=== PATIENT | male | born 1945 | race Caucasian/White ===

== ENCOUNTER 2018-09-20 19:54 | Inpatient (IN) ==
[2018-09-21] MEDS ORDERED: Acetaminophen 325 MG Tablet PO PRN (01:59)
[2018-09-21] MEDS ORDERED: Bisacodyl 10 MG Supp RECTAL PRN (01:59)
[2018-09-21] MEDS ORDERED: Dextrose 50% in Water 50 ML Vial IV.PUSH PRN (06:13)
[2018-09-21] MEDS: Insulin NovoLOG Aspart Correctional Sugar Inj SQ SCH ×4 (08:50→20:49)
--- NOTE | 2018-09-21 14:52 | P.HPIM ---
History of Present Illness Primary Care Physician: [facility] Chief Complaint: Altered mental status change History of Present Illness: 72-year-old man with multiple comorbidities and extensive past medical history including congestive heart failure, diabetes type 2, hypertension, previous history of squamous cell carcinoma, prostate cancer, CAD status post CABG was brought to the ED for evaluation of altered mental status change and a fall from the side of the bed. Patient had unremarkable head CTA and head CT in the ED however he had 8 mm nodular opacity finding in the right lower lung PMFSH Social History Social History Substance History: No History of Abuse Second Hand Smoke Exposure: No Smoking Status: Former smoker Tobacco Type: Cigarettes How Often Do You Have a Drink Containing Alcohol: Never Recent Travel in [place] within the Last 8 Weeks: No Recent Out of Country Travel within the Last 8 Weeks: No Medications and Allergies Allergies Allergy/AdvReac Type Severity Reaction Status Date / Time No Known Allergies Allergy Verified 09/20/18 20:05 Home Medications Medication Instructions Recorded Confirmed Type aspirin 81 mg PO DAILY 09/20/18 09/20/18 History atorvastatin 80 mg PO QPM 09/20/18 09/20/18 History carbidopa-levodopa 1 tab PO TID 09/20/18 09/20/18 History carvedilol 12.5 mg PO BID 09/20/18 09/20/18 History insulin aspart U-100 [Novolog 10 unit SUBCUT TID 09/20/18 09/20/18 History Flexpen U-100 Insulin] insulin glargine 50 unit SUBCUT DAILY 09/20/18 09/20/18 History lisinopril 5 mg PO DAILY 09/20/18 09/20/18 History meloxicam 7.5 mg PO DAILY 09/20/18 09/20/18 History metformin 500 mg PO BID 09/20/18 09/20/18 History omeprazole 20 mg PO DAILY 09/20/18 09/20/18 History polyvinyl alcohol 1 drp OPHTHALMIC (EYE) TID-QID PRN 09/20/18 09/20/18 History tamsulosin [Flomax] 0.4 mg PO DAILY 09/20/18 09/20/18 History venlafaxine 75 mg PO TID 09/20/18 09/20/18 History Active Medications: Active Medications Acetaminophen (Tylenol) 650 mg PO Q4H PRN PRN Reason: Temp > 100.4 Al Hydroxide/Mg Hydroxide (Milk Of Magnesia Liq) 30 ml PO Q12H PRN PRN Reason: Mild Constipation Bisacodyl (Dulcolax Supp) 10 mg RECTAL DAILY PRN PRN Reason: SEVERE CONSITIPATION Dextrose (D50w Vial) 50 ml IV.PUSH UNSCH PRN PRN Reason: PER HYPOGLYCEMIA PROTOCOL Glucagon (Glucagon Inj) 1 mg OTHER PRN PRN PRN Reason: for Hypoglycemia Protocol Ceftriaxone Sodium 1,000 mg/ (Sodium Chloride) 100 mls @ 200 mls/hr IV.SIG Q24H [facility] Last Infusion: 09/21/18 09:21 Dose: Infused Insulin Aspart (Novolog Insulin Correctional Sugar Inj) 0 unit SQ ACHS AND 3AM [facility]; Protocol Last Admin: 09/21/18 11:35 Dose: 5 unit Lactulose (Lactulose Liq) 30 ml PO DAILY PRN PRN Reason: SEVERE CONSITIPATION Ondansetron HCl (Zofran Inj) 4 mg IV.PUSH Q6H PRN PRN Reason: NAUSEA OR VOMITING Sennosides (Senokot) 17.2 mg PO Q12H PRN PRN Reason: Moderate Constipation Sodium Chloride (Ns Flush) 2 ml IV.FLUSH BID [facility] Last Admin: 09/21/18 10:00 Dose: 2 ml Sodium Chloride (Ns Flush) 2 ml IV.FLUSH PRN PRN PRN Reason: FLUSH AFTER USING IV ACCESS Physical Exam Vital signs: Vital Signs 09/21/18 06:00 09/21/18 08:00 09/21/18 08:02 Temperature 99.2 F 99.6 F Pulse Rate 60 105 H 114 H Respiratory Rate 20 20 Blood Pressure 110/56 L 111/65 Pulse Oximetry 93 L 97 09/21/18 12:00 Temperature 97.9 F Pulse Rate 107 H Respiratory Rate 20 Blood Pressure 136/64 Pulse Oximetry 93 L Intake & Output 09/20/18 09/21/18 09/21/18 18:59 06:59 18:59 Intake Total 120 / 120 100 / 100 Output Total 800 / 800 Balance -680 / -680 100 / 100 Weight 81.9 kg Intake: IV 100 / 100 Rocephin Inj 1,000 MG In NS Inj 100 / 100 100 ML @ 200 mls/hr IV.SIG Q24H [facility] Rx#:[id number] Oral 120 / 120 Output: Urine 800 / 800 Other: Date of Last Bowel Movement 09/18/18 Weight On Admission 79.199 kg Narrative: GENERAL: NAD SKIN: Warm and dry. HEAD: Atraumatic. Normocephalic. EYES: Pupils equal and round. No scleral icterus. No injection or drainage. ENT: No nasal bleeding or discharge. Mucous membranes pink and moist. NECK: Trachea midline. No JVD. CARDIOVASCULAR: Regular rate and rhythm. RESPIRATORY: No accessory muscle use. Clear to auscultation. Breath sounds equal bilaterally. GASTROINTESTINAL: Abdomen soft, non-tender, nondistended. Hepatic and splenic margins not palpable. MUSCULOSKELETAL: Extremities without clubbing, cyanosis, or edema. No obvious deformities. NEUROLOGICAL: Awake and alert. No obvious cranial nerve deficits. Motor grossly within normal limits. Five out of 5 muscle strength in the arms and legs. Normal speech. PSYCHIATRIC: Appropriate mood and affect; insight and judgment normal. Urinary Catheter Management Indwelling Urethral Catheter: Cath placed during this visit: yes Reason for continuing: Other continuation reason Insertion date: 09/20/18 Caprini VTE Risk Assessment Caprini VTE Risk Assessment: Moderate/High Risk (score >= 2) Caprini Risk Assessment Model: Point Value = 1 Point Value = 2 Point Value = 3 Point Value = 5 Age 41-60 Minor surgery BMI > 25 kg/m2 Swollen legs Varicose veins or History of unexplained or recurrent spontaneous Oral contraceptives or hormone replacement Sepsis (< 1 month) Serious lung disease, including pneumonia (< 1 month) Abnormal pulmonary function Acute myocardial infarction Congestive heart failure (< 1 month) History of inflammatory bowel disease Medical patient at bed rest Age 61-74 Arthroscopic surgery Major open surgery (> 45 min) Laparoscopic surgery (> 45 min) Malignancy Confined to bed (> 72 hours) Immobilizing plaster cast Central venous access Age >= 75 History of VTE Family history of VTE Factor V Leiden Prothrombin [id number] Lupus anticoagulant Anticardiolipin antibodies Elevated serum homocysteine Heparin-induced thrombocytopenia Other congenital or acquired thrombophilia Stroke (< 1 month) Elective arthroplasty Hip, pelvis, or leg fracture Acute spinal cord injury (< 1 month) Prophylaxis Regimen: Total Risk Factor Score Risk Level Prophylaxis Regimen 0-1 Low Early ambulation 2 Moderate Order ONE of the following: *Sequential Compression Device (SCD) *Heparin 5000 units SQ BID 3-4 Higher Order ONE of the following medications: *Heparin 5000 units SQ TID *Enoxaparin/Lovenox 40 mg SQ daily (WT < 150 kg, CrCl > 30 mL/min) *Enoxaparin/Lovenox 30 mg SQ daily (WT < 150 kg, CrCl > 10-29 mL/min) *Enoxaparin/Lovenox 30 mg SQ BID (WT < 150 kg, CrCl > 30 mL/min) AND/OR *Sequential Compression Device (SCD) 5 or more Highest Order ONE of the following medications: *Heparin 5000 units SQ TID (Preferred with Epidurals) *Enoxaparin/Lovenox 40 mg SQ daily (WT < 150 kg, CrCl > 30 mL/min) *Enoxaparin/Lovenox 30 mg SQ daily (WT < 150 kg, CrCl > 10-29 mL/min) *Enoxaparin/Lovenox 30 mg SQ BID (WT < 150 kg, CrCl > 30 mL/min) AND *Sequential Compression Device (SCD) Assessment and Plan Plan 72-year-old man with Altered mental status change Differential diagnosis includes pneumonia as patient with finding of 8 mm nodular infiltrate in the right lung He also be due to abnormal UA i.e. UTI Head CT noted and reviewed by me unremarkable Pneumonia Chest x-ray noted and reviewed by me with finding of 8 mm nodular infiltrate in the right lung Currently on Rocephin and add azithromycin Abnormal UA Currently on Rocephin pending urine culture Diabetes type 2 Start insulin sliding scale with fingerstick blood glucose monitoring Hold oral antihyperglycemic agent Parkinson's disease Resume outpatient medications Other chronic medical conditions Resume outpatient medications PT consult to treat and eval H&P: Quality VTE Deep Vein Thrombosis/Pulmonary Embolism Present on Admission: No
[2018-09-21] MEDS: Azithromycin Inj 500 MG in Sodium Chlor 0.9% Inj 250 ML IV.SIG SCH (16:36)
[2018-09-21] MEDS ORDERED: Sodium Chlor 0.9% Inj 500 ML IV.SIG SCH ×2 (19:29→23:45)
[2018-09-22] MEDS: Carvedilol 12.5 MG Tablet PO SCH ×3 (00:17→20:35)
[2018-09-22 00:45] LABS: Chloride 98 meq/L (98-107); Potassium 3.6 meq/L (3.5-5.1); Sodium 133 meq/L (136-145)
[2018-09-22 00:49] LABS: Albumin 1.9 g/dL (3.4-5.0); Anion Gap 8 meq/L (5-15); Blood Urea Nitrogen 31 mg/dL (7-18); Calcium 8.2 mg/dL (8.5-10.1); Carbon Dioxide 27.2 meq/L (21.0-32.0); Glucose,Random 153 mg/dL (74-106)
[2018-09-22 00:52] LABS: Aspartate Aminotransferase 19 U/L (15-37); Glomerular Filtration Rate 88 mL/min (>89)
[2018-09-22 00:54] LABS: Total Protein 6.5 g/dL (6.4-8.2)
[2018-09-22 00:55] LABS: Alkaline Phosphatase 126 U/L (45-117)
[2018-09-22 00:57] LABS: Troponin I 0.07 ng/mL (0.02-0.05)
[2018-09-22 01:14] LABS: Creatine Kinase 63 U/L (39-308)
[2018-09-22 01:15] LABS: Baso % (Auto) 0.2 % (0.0-2.0); Eos % (Auto) 0.1 % (0.0-4.0); Hematocrit 31.1 % (39.0-51.0); Lymph # (Auto) 0.5 th/mm3 (1.0-4.8); Lymph % (Auto) 5.8 % (9.0-44.0); Mean Corpuscular HGB Conc 32.3 % (32.0-36.0); Mean Corpuscular Hemoglobin 25.6 pg (27.0-34.0); Mean Corpuscular Volume 79.3 fL (80.0-100.0); Mono # (Auto) 0.7 th/mm3 (0.0-0.9); Neut % (Auto) 85.9 % (16.0-70.0); Platelet Count 306 th/mm3 (150-450); Red Blood Count 3.92 mil/mm3 (4.50-5.90); Red Cell Distribution Width 16.6 % (11.6-17.2); White Blood Count 8.2 th/mm3 (4.0-11.0)
[2018-09-22] MEDS: Chlorhexidine Gluconate 2% 1 Pack (2 Cloths) TOPICAL SCH (03:11)
[2018-09-22] MEDS: Insulin NovoLOG Aspart Correctional Sugar Inj SQ SCH ×5 (03:11→21:39)
[2018-09-22] MEDS ORDERED: Chlorhexidine Gluconate 2% 1 Pack (2 Cloths) TOPICAL PRN (04:00)
--- NOTE | 2018-09-22 06:48 | ECG ---
Date Performed: 09/22/2018 Time Performed: 00:10:47 PTAGE: 72 years EKG: ELECTRONIC VENTRICULAR PACEMAKER ABNORMAL RHYTHM ECG NO PREVIOUS TRACING DOCTOR: Leonard Francis Interpretating Date/Time 09/22/2018 06:48:08
[2018-09-22 07:23] LABS: Baso # (Auto) 0.1 th/mm3 (0.0-0.2); Baso % (Auto) 0.9 % (0.0-2.0); Eos % (Auto) 0.1 % (0.0-4.0); Hematocrit 31.1 % (39.0-51.0); Lymph # (Auto) 0.3 th/mm3 (1.0-4.8); Lymph % (Auto) 3.3 % (9.0-44.0); Mean Corpuscular Volume 78.2 fL (80.0-100.0); Mean Platelet Volume 7.8 fL (7.0-11.0); Mono # (Auto) 0.3 th/mm3 (0.0-0.9); Neut # (Auto) 7.6 th/mm3 (1.8-7.7); Neut % (Auto) 91.7 % (16.0-70.0); Platelet Count 299 th/mm3 (150-450); Red Blood Count 3.98 mil/mm3 (4.50-5.90); White Blood Count 8.3 th/mm3 (4.0-11.0)
[2018-09-22 07:59] LABS: Chloride 96 meq/L (98-107); Potassium 3.8 meq/L (3.5-5.1); Sodium 131 meq/L (136-145)
[2018-09-22 08:01] LABS: Anion Gap 8 meq/L (5-15); Calcium 8.4 mg/dL (8.5-10.1); Glucose,Random 172 mg/dL (74-106)
[2018-09-22 08:02] LABS: Blood Urea Nitrogen 28 mg/dL (7-18)
[2018-09-22 08:04] LABS: Troponin I 0.04 ng/mL (0.02-0.05)
[2018-09-22 08:05] LABS: Glomerular Filtration Rate Greater Than 89 mL/min (>89)
[2018-09-22] MEDS: Venlafaxine XR 75 MG Capsule PO SCH (08:12)
[2018-09-22] MEDS: Pantoprazole Sodium 20 MG DR Tablet PO SCH (08:13)
[2018-09-22] MEDS: Lisinopril 5 MG Tablet PO SCH (09:06)
--- NOTE | 2018-09-22 12:11 | P.PNIM ---
Subjective Interval history: Follow-up encephalopathy metabolic/UTI/bacteremia/pneumonia September 22, 2018patient seen and examined, patient appears more alert today and oriented to person, family member. Blood culture positive entry bilateral. Urine culture positive for Klebsiella. He was transferred last night to ICU Physical Exam Vital signs: Vital Signs 09/21/18 16:00 09/21/18 16:20 09/21/18 20:00 Temperature 98.8 F 98.7 F Pulse Rate 105 H 119 H 91 H Respiratory Rate 20 24 Blood Pressure 120/65 101/63 Pulse Oximetry 97 97 09/21/18 23:30 09/22/18 00:00 09/22/18 04:00 Temperature 97.5 F L 98.2 F Pulse Rate 88 97 H Respiratory Rate 19 21 Blood Pressure 85/47 L 127/65 Pulse Oximetry 97 97 99 09/22/18 08:00 09/22/18 08:58 09/22/18 09:58 Temperature Pulse Rate 102 H 100 H 92 H Respiratory Rate 23 21 Blood Pressure 142/69 H 127/62 Pulse Oximetry 97 98 09/22/18 10:03 09/22/18 10:58 09/22/18 11:58 Temperature Pulse Rate 82 80 Respiratory Rate 21 18 Blood Pressure 117/60 120/67 Pulse Oximetry 97 98 97 Intake & Output 09/21/18 09/22/18 09/22/18 18:59 06:59 18:59 Intake Total 1610 / 1610 1490 / 1490 500 / 500 Output Total 600 / 600 500 / 500 300 / 300 Balance 1010 / 1010 990 / 990 200 / 200 Weight 81.9 kg Intake: IV 350 / 350 1100 / 1100 Azithromycin Inj 500 MG In NS 250 / 250 Inj 250 ML @ 250 mls/hr IV.SIG Q24H [facility] Rx#:[id number] Maxipime Inj 2,000 MG In NS Inj 100 / 100 100 ML @ 200 mls/hr IV.SIG Q12H [facility] Rx#:[id number] NS Inj 500 ML @ 1000 mls/hr IV. 1000 / 1000 SIG BOLUS [facility] Rx#:[id number] Rocephin Inj 1,000 MG In NS Inj 100 / 100 100 ML @ 200 mls/hr IV.SIG Q24H [facility] Rx#:[id number] Oral 1260 / 1260 390 / 390 500 / 500 Output: Urine 600 / 600 300 / 300 Urine Amount (Catheter) 500 / 500 Indwelling Urethral Catheter 500 / 500 Other: Date of Last Bowel Movement 09/18/18 # Bowel Movements 1 Narrative: GENERAL: NAD SKIN: Warm and dry. HEAD: Atraumatic. Normocephalic. EYES: Pupils equal and round. No scleral icterus. No injection or drainage. ENT: No nasal bleeding or discharge. Mucous membranes pink and moist. NECK: Trachea midline. No JVD. CARDIOVASCULAR: Regular rate and rhythm. RESPIRATORY: No accessory muscle use. Clear to auscultation. Breath sounds equal bilaterally. GASTROINTESTINAL: Abdomen soft, non-tender, nondistended. Hepatic and splenic margins not palpable. MUSCULOSKELETAL: Extremities without clubbing, cyanosis, or edema. No obvious deformities. NEUROLOGICAL: Awake and alert. No obvious cranial nerve deficits. Motor grossly within normal limits. Five out of 5 muscle strength in the arms and legs. Normal speech. PSYCHIATRIC: Appropriate mood and affect; insight and judgment normal. Urinary Catheter Management Indwelling Urethral Catheter: Cath placed during this visit: yes Reason for continuing: Hourly intake/output Insertion date: 09/21/18 Results Labs CBC & Chem 7: 09/22/18 06:58 09/22/18 06:58 Assessment and Plan Plan 72-year-old man with Bacteremia Blood culture positive gram-negative rods Repeat blood culture Currently on IV Rocephin and azithromycin Consult ID Altered mental status change Differential diagnosis includes pneumonia as patient with finding of 8 mm nodular infiltrate in the right lung He also be due to abnormal UA i.e. UTI Head CT noted and reviewed by me unremarkable Pneumonia Chest x-ray noted and reviewed by me with finding of 8 mm nodular infiltrate in the right lung Currently on Rocephin and add azithromycin UTI Urine culture positive for Klebsiella aerogenes Currently on Rocephin Diabetes type 2 Continue insulin sliding scale with fingerstick blood glucose monitoring Hold oral antihyperglycemic agent Parkinson's disease Continue outpatient medications Other chronic medical conditions Continue outpatient medications PT to treat and eval Progress Note: Quality VTE Deep Vein Thrombosis/Pulmonary Embolism Present on Admission: No
[2018-09-22 13:23] LABS: Troponin I 0.02 ng/mL (0.02-0.05)
[2018-09-22] MEDS: Azithromycin Inj 500 MG in Sodium Chlor 0.9% Inj 250 ML IV.SIG SCH (16:14)
--- NOTE | 2018-09-22 17:19 | MB ---
cc: Camilo Costello MD DATE: 09/22/2018 REQUESTING PHYSICIAN: Silviano Richardson MD. REASON: This is a 72-year-old male admitted with metabolic encephalopathy. Treated for UTI and pneumonia, now with bacteremia. HISTORY OF PRESENT ILLNESS: This is a 72-year-old white male who was brought to the emergency department with altered mental status on 09/20/2018. The patient has multiple medical problems. His is at bedside and was able to give me information in addition to the patient. The patient was recently diagnosed with Parkinson disease. His noticed altered mental status and brought him to the emergency department for evaluation. He was initially seen on 09/20/2017 in the emergency department and he was evaluated and blood cultures were taken. Blood culture came back showing gram-negative missael in 3 of 4 bottles. Urine culture was also taken and showed Klebsiella aerogenes. The patient had elevated blood pressure while in the emergency department. This morning, his blood pressure dropped down to 85/47 and he was transported to the intensive care unit. The patient also had a chest x-ray which showed an 8 mm nodular opacity in the lateral right lower lung zone likely reflecting nipple shadow. Air space disease associated with volume loss was noted in the left lower lung zone. The patient's noted that he has a cough with slight yellow sputum production about a week ago, but that is improved. He notes that prior to him having coughed, she herself had coughing and production of yellow sputum as well. The patient feels better today. He was able to ambulate with physical therapy assistance. His noted that in the emergency department on 09/20/2018 the patient had shaking all over and they felt it was due to Parkinson disease in addition to possible infection. The white blood cell count has been normal with left shift. Temperature has been normal since admission. The patient is noted to have enlarged prostate and also has history of prostate cancer. He has been followed by the urologist and has been treated with beads implant. His PSA was noted to have decreased. Because of the enlarged prostate, he is due to go for a cystoscopy on 10/04/2018. Currently, he is awake and he is alert and communicates without difficulty, although he is somewhat slow in responses. He has a Bennett catheter in place which has clear yellow urine. The patient's noted that he gets urinary tract infection every time he has an insertion of a Bennett catheter and the last time this occurred was in July when he had a procedure on the lung and he was put under anesthesia and a Bennett catheter was placed then. Otherwise, notes that he has had weight loss, decreased appetite, constipation. He has also had urinary hesitancy and urgency, but no dysuria or back pain or flank pain. The also reports that he has very poor appetite over the past couple of weeks. The patient is also noted to have problems with his balance and he has fallen several times over the past few months. He states that he gets dizzy before he falls and he has no indication that he is going to fall when it happens. He has fallen at least on 3 occasions. He has no diarrhea or shortness of breath. PAST MEDICAL HISTORY: Diabetes mellitus, hypercholesteremia, Tellez's esophagus, esophageal cancer, pacemaker implantation 3 years ago, Parkinson disease, history of coronary artery bypass graft. PAST SURGICAL HISTORY: Lung lobectomy in 07/2018. ALLERGIES: NO KNOWN DRUG ALLERGIES. MEDICATIONS: 1. Azithromycin. 2. Cefepime. 3. Prinivil. 4. Effexor. 5. Flomax. 6. Protonix. 8. Insulin. 9. Lipitor. 10. Ecotrin. 11. Artificial Tears. SOCIAL HISTORY: The patient is . No tobacco use. He is a former smoker. No illicit drugs. No alcohol. FAMILY HISTORY: Noncontributory. REVIEW OF SYSTEMS: All systems have been reviewed and pertinents are mentioned in the history of present illness. PHYSICAL EXAMINATION: GENERAL: Well-developed male who is in no acute distress. He is awake and alert and oriented. VITAL SIGNS: Temperature 97.8, BP 108/59, respirations 20, heart rate 82. HEENT: Head atraumatic. Extraocular movements are grossly intact. Pupils reactive to light. No icterus. Oropharynx: Mucosa moist. No visible lesions. NECK: Supple without adenopathy or swelling. LUNGS: Clear breath sounds which are slightly diminished at the bases. HEART: Regular S1 and S2, without murmurs, rubs or gallops. ABDOMEN: Bowel sounds present. Soft, no tenderness appreciated. No palpable mass. RECTAL: Not performed. EXTREMITIES: No clubbing, cyanosis or edema. SKIN: No rash. NEUROLOGIC: No gross focal findings. The patient has mild weakness in the upper extremities. No visible tremor. PSYCHIATRIC: The patient is calm and cooperative. LABORATORY DATA: WBC 8.3, platelets 299,000, hemoglobin 10, 91% neutrophils. Creatinine 0.71. Estimated GFR greater than 89. Sodium 131. IMPRESSION: 1. Gram-negative sepsis from urinary tract infection source. 2. Urinary tract infection due to Klebsiella aerogenes (entero). 3. Benign prostatic hypertrophy. 4. Airspace disease along with volume loss noted in the left lower lung. The patient, however, is without clinical evidence suggesting pneumonia. He did have cough with yellow-tinged sputum, but that was not really significant and had improved before coming to the hospital. 5. The patient is noted to have Parkinson's disease and he had shaking spells in the emergency department, which very likely was due to bacteremia. His Parkinson's may have become exacerbated also by infection. RECOMMENDATIONS: 1. Continue cefepime. 2. Monitor identity and sensitivity of the gram-negative rods in the blood. 3. Monitor the repeat blood cultures. 4. Monitor clinical status and blood pressure. The patient looks fairly stable at this time and looks like he is having a very rapid response to antibiotic treatment. Thank you for this consultation. I will monitor the patient's progress along with you and make further recommendations upon followup. His enlarged prostate puts him at risk for recurrent urinary infection. He will need to be completely treated for this infection before undergoing cystoscopy, which is planned for 10/04/2018. MD DIPAK Baca/hardy , 04:36 PM , 04:55 PM
[2018-09-23] MEDS: Insulin NovoLOG Aspart Correctional Sugar Inj SQ SCH ×5 (05:19→22:14)
[2018-09-23] MEDS: Chlorhexidine Gluconate 2% 1 Pack (2 Cloths) TOPICAL SCH (05:21)
[2018-09-23 06:21] LABS: Chloride 94 meq/L (98-107); Potassium 3.9 meq/L (3.5-5.1); Sodium 130 meq/L (136-145)
[2018-09-23 06:22] LABS: Baso % (Auto) 0.2 % (0.0-2.0); Eos % (Auto) 0.2 % (0.0-4.0); Hematocrit 29.1 % (39.0-51.0); Hemoglobin 9.5 gm/dL (13.0-17.0); Lymph # (Auto) 0.4 th/mm3 (1.0-4.8); Lymph % (Auto) 5.9 % (9.0-44.0); Mean Corpuscular HGB Conc 32.6 % (32.0-36.0); Mean Corpuscular Hemoglobin 25.8 pg (27.0-34.0); Mean Corpuscular Volume 79.2 fL (80.0-100.0); Mean Platelet Volume 8.3 fL (7.0-11.0); Mono # (Auto) 0.6 th/mm3 (0.0-0.9); Mono % (Auto) 8.4 % (0.0-8.0); Neut # (Auto) 5.8 th/mm3 (1.8-7.7); Neut % (Auto) 85.3 % (16.0-70.0); Platelet Count 267 th/mm3 (150-450); Red Blood Count 3.67 mil/mm3 (4.50-5.90); Red Cell Distribution Width 16.7 % (11.6-17.2); White Blood Count 6.8 th/mm3 (4.0-11.0)
[2018-09-23 06:25] LABS: Calcium 8.2 mg/dL (8.5-10.1)
[2018-09-23 06:26] LABS: Albumin 1.9 g/dL (3.4-5.0); Anion Gap 8 meq/L (5-15); Blood Urea Nitrogen 20 mg/dL (7-18); Carbon Dioxide 27.9 meq/L (21.0-32.0); Glucose,Random 189 mg/dL (74-106)
[2018-09-23 06:29] LABS: Alanine Aminotransferase 15 U/L (12-78); Aspartate Aminotransferase 23 U/L (15-37); Glomerular Filtration Rate Greater Than 89 mL/min (>89)
[2018-09-23 06:30] LABS: Total Protein 6.7 g/dL (6.4-8.2)
[2018-09-23 06:32] LABS: Alkaline Phosphatase 128 U/L (45-117)
[2018-09-23 07:16] LABS: Ovalocytes 1+
[2018-09-23] MEDS: Carvedilol 12.5 MG Tablet PO SCH ×2 (08:31→20:04)
[2018-09-23] MEDS: Venlafaxine XR 75 MG Capsule PO SCH (08:31)
[2018-09-23] MEDS: Lisinopril 5 MG Tablet PO SCH (08:32)
[2018-09-23] MEDS: Pantoprazole Sodium 20 MG DR Tablet PO SCH (08:32)
--- NOTE | 2018-09-23 13:52 | P.PNIM ---
Subjective Interval history: Follow-up gram-negative sepsis/UTI/encephalopathy/bacteremia September 23, 2018patient seen and examined, more alert and oriented however not much of an appetite. Currently afebrile. Physical Exam Vital signs: Vital Signs 09/22/18 13:58 09/22/18 16:58 09/22/18 17:34 Temperature Pulse Rate 82 112 H Respiratory Rate 21 29 H Blood Pressure 108/59 L 126/74 131/64 Pulse Oximetry 98 09/22/18 17:58 09/22/18 19:00 09/22/18 19:42 Temperature 98 F Pulse Rate 104 H 104 H Respiratory Rate 23 23 Blood Pressure 138/68 119/58 L Pulse Oximetry 95 96 09/22/18 20:00 09/22/18 21:00 09/22/18 22:00 Temperature Pulse Rate 102 H 102 H 96 H Respiratory Rate 30 H 26 H 29 H Blood Pressure 106/55 L 124/62 123/62 Pulse Oximetry 09/22/18 23:00 09/23/18 00:00 09/23/18 01:00 Temperature 99 F Pulse Rate 98 H 111 H 94 H Respiratory Rate 28 H 27 H 27 H Blood Pressure 126/59 L 113/72 111/61 Pulse Oximetry 95 09/23/18 02:00 09/23/18 03:00 09/23/18 04:00 Temperature 98.2 F Pulse Rate 86 86 94 H Respiratory Rate 26 H 25 H 24 Blood Pressure 116/58 L 133/67 134/67 Pulse Oximetry 09/23/18 04:58 09/23/18 08:00 09/23/18 08:58 Temperature Pulse Rate 86 73 84 Respiratory Rate 25 H 22 Blood Pressure 137/73 146/68 H Pulse Oximetry 09/23/18 09:26 09/23/18 09:58 09/23/18 10:00 Temperature Pulse Rate 86 86 Respiratory Rate 22 24 Blood Pressure 107/58 L Pulse Oximetry 97 97 94 L 09/23/18 10:58 Temperature Pulse Rate 84 Respiratory Rate 23 Blood Pressure 115/57 L Pulse Oximetry Intake & Output 09/22/18 09/23/18 09/23/18 18:59 06:59 18:59 Intake Total 1570 / 1570 1190 / 1190 100 / 100 Output Total 950 / 950 450 / 450 Balance 620 / 620 740 / 740 100 / 100 Weight 82.2 kg Intake: IV 350 / 350 100 / 100 100 / 100 Azithromycin Inj 500 MG In NS 250 / 250 Inj 250 ML @ 250 mls/hr IV.SIG Q24H [facility] Rx#:[id number] Maxipime Inj 2,000 MG In NS Inj 100 / 100 100 / 100 100 / 100 100 ML @ 200 mls/hr IV.SIG Q12H [facility] Rx#:[id number] Oral 1220 / 1220 1090 / 1090 Output: Urine 300 / 300 450 / 450 Urine Amount (Catheter) 650 / 650 Indwelling Urethral Catheter 650 / 650 Other: Date of Last Bowel Movement 09/18/18 09/18/18 09/23/18 # Bowel Movements 0 Narrative: GENERAL: NAD SKIN: Warm and dry. HEAD: Atraumatic. Normocephalic. EYES: Pupils equal and round. No scleral icterus. No injection or drainage. ENT: No nasal bleeding or discharge. Mucous membranes pink and moist. NECK: Trachea midline. No JVD. CARDIOVASCULAR: Regular rate and rhythm. RESPIRATORY: No accessory muscle use. Clear to auscultation. Breath sounds equal bilaterally. GASTROINTESTINAL: Abdomen soft, non-tender, nondistended. Hepatic and splenic margins not palpable. MUSCULOSKELETAL: Extremities without clubbing, cyanosis, or edema. No obvious deformities. NEUROLOGICAL: Awake and alert. No obvious cranial nerve deficits. Motor grossly within normal limits. Five out of 5 muscle strength in the arms and legs. Normal speech. PSYCHIATRIC: Appropriate mood and affect; insight and judgment normal. Urinary Catheter Management Indwelling Urethral Catheter: Cath placed during this visit: yes Reason for continuing: Hourly intake/output Insertion date: 09/21/18 Results Labs CBC & Chem 7: 09/23/18 05:31 09/23/18 05:31 Labs: Microbiology 09/22/18 12:49 Blood - Peripheral Aerobic Blood Culture - Preliminary No growth in 1 day 09/22/18 12:49 Blood - Peripheral Anaerobic Blood Culture - Preliminary No growth in 1 day 09/22/18 12:43 Blood - Peripheral Aerobic Blood Culture - Preliminary No growth in 1 day 09/22/18 12:43 Blood - Peripheral Anaerobic Blood Culture - Preliminary No growth in 1 day Assessment and Plan Plan 72-year-old man with Gram-negative bacteremia Blood culture positive gram-negative rods Repeat blood culture Currently on IV cefepime, discontinue azithromycin Appreciate input from ID Altered mental status change-improving Differential diagnosis includes pneumonia as patient with finding of 8 mm nodular infiltrate in the right lung He also be due to abnormal UA i.e. UTI Head CT noted and reviewed by me unremarkable Pneumonia? Chest x-ray noted and reviewed by me with finding of 8 mm nodular infiltrate in the right lung Currently on cefepime and azithromycin, will discontinue azithromycin Klebsiella UTI Urine culture positive for Klebsiella aerogenes Currently on IV cefepime Diabetes type 2 Continue insulin sliding scale with fingerstick blood glucose monitoring Hold oral antihyperglycemic agent Parkinson's disease Continue outpatient medications Other chronic medical conditions Continue outpatient medications PT to treat and eval Progress Note: Quality VTE Deep Vein Thrombosis/Pulmonary Embolism Present on Admission: No
[2018-09-24] MEDS: Insulin NovoLOG Aspart Correctional Sugar Inj SQ SCH ×5 (04:39→21:49)
[2018-09-24] MEDS: Chlorhexidine Gluconate 2% 1 Pack (2 Cloths) TOPICAL SCH (06:18)
[2018-09-24] MEDS: Venlafaxine XR 75 MG Capsule PO SCH (08:28)
[2018-09-24] MEDS: Pantoprazole Sodium 20 MG DR Tablet PO SCH (08:28)
[2018-09-24] MEDS: Carvedilol 12.5 MG Tablet PO SCH ×2 (08:28→21:45)
[2018-09-24] MEDS: Lisinopril 5 MG Tablet PO SCH (08:28)
--- NOTE | 2018-09-24 10:43 | P.PNIM ---
Subjective Interval history: Follow-up gram-negative sepsis/UTI/metabolic encephalopathy/ bacteremia September 24, 2018patient seen and examined, afebrile in no acute event overnight. Alert and oriented x2. Taking p.o. well. Physical Exam Vital signs: Vital Signs 09/23/18 10:58 09/23/18 11:58 09/23/18 12:58 Temperature Pulse Rate 84 84 78 Respiratory Rate 23 23 24 Blood Pressure 115/57 L 128/54 L 115/55 L Pulse Oximetry 09/23/18 13:58 09/23/18 14:00 09/23/18 16:58 Temperature Pulse Rate 84 82 86 Respiratory Rate 24 25 H 25 H Blood Pressure 127/63 123/56 L Pulse Oximetry 09/23/18 17:58 09/23/18 19:00 09/23/18 20:00 Temperature 98.6 F Pulse Rate 94 H 94 H 94 H Respiratory Rate 27 H 28 H 27 H Blood Pressure 142/71 H 122/53 L 114/60 Pulse Oximetry 93 L 09/23/18 21:00 09/23/18 22:00 09/23/18 23:00 Temperature Pulse Rate 94 H 88 78 Respiratory Rate 27 H 27 H 26 H Blood Pressure 140/71 113/58 L 107/50 L Pulse Oximetry 93 L 95 95 09/24/18 00:14 09/24/18 01:03 09/24/18 02:00 Temperature 98.9 F Pulse Rate 76 74 66 Respiratory Rate 24 23 23 Blood Pressure 105/53 L 109/27 L 103/49 L Pulse Oximetry 94 L 97 97 09/24/18 03:00 09/24/18 04:00 09/24/18 05:00 Temperature 98.6 F Pulse Rate 76 68 66 Respiratory Rate 23 25 H 23 Blood Pressure 119/56 L 94/50 L 93/53 L Pulse Oximetry 97 95 97 09/24/18 06:00 09/24/18 08:31 Temperature Pulse Rate 70 Respiratory Rate 21 Blood Pressure 128/62 Pulse Oximetry 97 95 Intake & Output 09/23/18 09/24/18 09/24/18 18:59 06:59 18:59 Intake Total 1060 / 1060 340 / 340 Output Total 600 / 600 500 / 500 Balance 460 / 460 -160 / -160 Weight 82.3 kg Intake: IV 100 / 100 100 / 100 Maxipime Inj 2,000 MG In NS Inj 100 / 100 100 / 100 100 ML @ 200 mls/hr IV.SIG Q12H [facility] Rx#:[id number] Oral 960 / 960 240 / 240 Output: Urine Amount (Catheter) 600 / 600 500 / 500 Indwelling Urethral Catheter 600 / 600 500 / 500 Other: Date of Last Bowel Movement 09/23/18 09/23/18 09/23/18 # Bowel Movements 2 # Incontinent Bowel Movements 1 Narrative: GENERAL: NAD SKIN: Warm and dry. HEAD: Atraumatic. Normocephalic. EYES: Pupils equal and round. No scleral icterus. No injection or drainage. ENT: No nasal bleeding or discharge. Mucous membranes pink and moist. NECK: Trachea midline. No JVD. CARDIOVASCULAR: Regular rate and rhythm. RESPIRATORY: No accessory muscle use. Clear to auscultation. Breath sounds equal bilaterally. GASTROINTESTINAL: Abdomen soft, non-tender, nondistended. Hepatic and splenic margins not palpable. MUSCULOSKELETAL: Extremities without clubbing, cyanosis, or edema. No obvious deformities. NEUROLOGICAL: Awake and alert. No obvious cranial nerve deficits. Motor grossly within normal limits. Five out of 5 muscle strength in the arms and legs. Normal speech. PSYCHIATRIC: Appropriate mood and affect; insight and judgment normal. Urinary Catheter Management Indwelling Urethral Catheter: Cath placed during this visit: yes Reason for continuing: Hourly intake/output Insertion date: 09/21/18 Results Labs CBC & Chem 7: 09/23/18 05:31 09/23/18 05:31 Labs: Microbiology 09/22/18 12:49 Blood - Peripheral Aerobic Blood Culture - Preliminary No growth in 1 day 09/22/18 12:49 Blood - Peripheral Anaerobic Blood Culture - Preliminary No growth in 1 day 09/22/18 12:43 Blood - Peripheral Aerobic Blood Culture - Preliminary No growth in 1 day 09/22/18 12:43 Blood - Peripheral Anaerobic Blood Culture - Preliminary No growth in 1 day Assessment and Plan Plan 72-year-old man with Gram-negative bacteremia Blood culture positive gram-negative rods Repeat blood culture Currently on IV cefepime, s/p azithromycin Appreciate input from ID Altered mental status change-improving Differential diagnosis includes pneumonia as patient with finding of 8 mm nodular infiltrate in the right lung He also be due to abnormal UA i.e. UTI Head CT noted and reviewed by me unremarkable Pneumonia? Chest x-ray noted and reviewed by me with finding of 8 mm nodular infiltrate in the right lung Currently on cefepime Klebsiella UTI Urine culture positive for Klebsiella aerogenes Currently on IV cefepime Diabetes type 2 Continue insulin sliding scale with fingerstick blood glucose monitoring Hold oral antihyperglycemic agent Parkinson's disease Continue outpatient medications Other chronic medical conditions Continue outpatient medications PT to treat and eval Transfer to [facility] Progress Note: Quality VTE Deep Vein Thrombosis/Pulmonary Embolism Present on Admission: No
--- NOTE | 2018-09-24 17:18 | P.PNID ---
Subjective Remarks: Patient is patient is seen sitting in a chair. Awake and alert. Reports that he feels okay. Noted to have drenching sweats. He denies chills. No nausea or vomiting. reports that he started eating well today. Afebrile. WBC is normal. 72-year-old white male who was brought to the emergency department with altered mental status on 09/20/2018. The patient has multiple medical problems. Past Medical History: PAST MEDICAL HISTORY: Diabetes mellitus, hypercholesteremia, Tellez's esophagus, esophageal cancer, pacemaker implantation 3 years ago, Parkinson disease, history of coronary artery bypass graft. PAST SURGICAL HISTORY: Lung lobectomy in 07/2018. Allergies/Adverse Reactions: Allergies No Known Allergies Allergy (Verified 09/20/18 20:05) Objective Vital Signs 09/23/18 17:58 09/23/18 19:00 09/23/18 20:00 Temperature 98.6 F Pulse Rate 94 H 94 H 94 H Respiratory Rate 27 H 28 H 27 H Blood Pressure 142/71 H 122/53 L 114/60 Pulse Oximetry 93 L 09/23/18 21:00 09/23/18 22:00 09/23/18 23:00 Temperature Pulse Rate 94 H 88 78 Respiratory Rate 27 H 27 H 26 H Blood Pressure 140/71 113/58 L 107/50 L Pulse Oximetry 93 L 95 95 09/24/18 00:14 09/24/18 01:03 09/24/18 02:00 Temperature 98.9 F Pulse Rate 76 74 66 Respiratory Rate 24 23 23 Blood Pressure 105/53 L 109/27 L 103/49 L Pulse Oximetry 94 L 97 97 09/24/18 03:00 09/24/18 04:00 09/24/18 05:00 Temperature 98.6 F Pulse Rate 76 68 66 Respiratory Rate 23 25 H 23 Blood Pressure 119/56 L 94/50 L 93/53 L Pulse Oximetry 97 95 97 09/24/18 06:00 09/24/18 08:00 09/24/18 08:31 Temperature Pulse Rate 70 85 Respiratory Rate 21 21 Blood Pressure 128/62 150/63 H Pulse Oximetry 97 95 95 09/24/18 09:00 09/24/18 10:00 09/24/18 11:00 Temperature Pulse Rate 82 84 78 Respiratory Rate 20 21 21 Blood Pressure 136/64 125/64 134/60 Pulse Oximetry 93 L 91 L 88 L 09/24/18 12:00 09/24/18 13:00 09/24/18 14:00 Temperature Pulse Rate 80 76 74 Respiratory Rate 21 21 22 Blood Pressure 142/69 H 114/54 L 112/55 L Pulse Oximetry 98 97 97 09/24/18 15:18 09/24/18 16:00 Temperature Pulse Rate 78 82 Respiratory Rate 22 22 Blood Pressure 104/53 L 123/53 L Pulse Oximetry 93 L Intake & Output 09/23/18 09/24/18 09/24/18 18:59 06:59 18:59 Intake Total 1060 / 1060 340 / 340 100 / 100 Output Total 600 / 600 500 / 500 Balance 460 / 460 -160 / -160 100 / 100 Weight 82.3 kg Intake: IV 100 / 100 100 / 100 100 / 100 Maxipime Inj 2,000 MG In NS Inj 100 / 100 100 / 100 100 / 100 100 ML @ 200 mls/hr IV.SIG Q12H [facility] Rx#:[id number] Oral 960 / 960 240 / 240 Output: Urine Amount (Catheter) 600 / 600 500 / 500 Indwelling Urethral Catheter 600 / 600 500 / 500 Other: Date of Last Bowel Movement 09/23/18 09/23/18 09/23/18 # Bowel Movements 2 # Incontinent Bowel Movements 1 09/22/18 12:49 Blood - Peripheral Aerobic Blood Culture - Preliminary No growth in 2 days 09/22/18 12:49 Blood - Peripheral Anaerobic Blood Culture - Preliminary No growth in 2 days 09/22/18 12:43 Blood - Peripheral Aerobic Blood Culture - Preliminary No growth in 2 days 09/22/18 12:43 Blood - Peripheral Anaerobic Blood Culture - Preliminary No growth in 2 days Lab - Hematology Results 09/23/18 05:31 CBC w Diff Slide review pending WBC 6.8 RBC 3.67 L Hgb 9.5 L Hct 29.1 L MCV 79.2 L MCH 25.8 L MCHC 32.6 RDW 16.7 Plt Count 267 MPV 8.3 Neut % (Auto) 85.3 H Lymph % (Auto) 5.9 [place] % (Auto) 8.4 H Eos % (Auto) 0.2 Baso % (Auto) 0.2 Neut # (Auto) 5.8 Lymph # (Auto) 0.4 L [place] # (Auto) 0.6 Eos # (Auto) 0.0 Baso # (Auto) 0.0 WBC Differential . Diff Scan Auto diff confirmed Differential Comment . Ovalocytes 1+ H Lab - Chemistry Results 09/23/18 09/23/18 09/23/18 05:18 05:31 07:36 Sodium 130 L Potassium 3.9 Chloride 94 L Carbon Dioxide 27.9 Anion Gap 8 BUN 20 H Creatinine 0.63 Estimated GFR Greater than 89 POC Glucose 189 184 Random Glucose 189 H Calcium 8.2 L Total Bilirubin 0.7 AST 23 ALT 15 Alkaline Phosphatase 128 H Total Protein 6.7 Albumin 1.9 L 09/23/18 09/23/18 09/23/18 11:46 16:45 22:01 Sodium Potassium Chloride Carbon Dioxide Anion Gap BUN Creatinine Estimated GFR POC Glucose 250 227 203 Random Glucose Calcium Total Bilirubin AST ALT Alkaline Phosphatase Total Protein Albumin 09/24/18 09/24/18 09/24/18 02:54 07:55 11:34 Sodium Potassium Chloride Carbon Dioxide Anion Gap BUN Creatinine Estimated GFR POC Glucose 161 151 237 Random Glucose Calcium Total Bilirubin AST ALT Alkaline Phosphatase Total Protein Albumin Physical Exam: PHYSICAL EXAMINATION: GENERAL: No acute distress. Patient is awake and alert. HEENT: Head atraumatic. Extraocular movements are grossly intact. Pupils reactive to light. No icterus. Oropharynx: Mucosa moist. No visible lesions. NECK: Supple without adenopathy or swelling. LUNGS: Bilateral rhonchi both lower lung [place]. HEART: Regular S1 and S2, without murmurs, rubs or gallops. ABDOMEN: Bowel sounds present. Soft, no tenderness appreciated. No palpable mass. EXTREMITIES: No clubbing, cyanosis or edema. SKIN: No rash. NEUROLOGIC: No gross focal findings. The patient has mild weakness in the upper extremities. No visible tremor. PSYCHIATRIC: Calm and cooperative. Assessment and Plan - Plan IMPRESSION: 1. Gram-negative sepsis from urinary tract infection source. Klebsiella aerogenes. 2. Urinary tract infection due to Klebsiella aerogenes (entero). 3. Benign prostatic hypertrophy. 4. Airspace disease along with volume loss noted in the left lower lung. The patient, however, is without clinical evidence suggesting pneumonia. He did have cough with yellow-tinged sputum, but that was not really significant and had improved before coming to the hospital. 5. Profuse sweats. Questionable etiology. Cause is unclear to me at this time. RECOMMENDATIONS: 1. Continue cefepime. Change to ceftriaxone tomorrow morning. Order written Plan on giving ceftriaxone until October 05, 2018. He is due to have cystoscopy and possibly a procedure on the prostate gland When he sees the urologist. He has an appointment for October 04. The urologist should be notified that he is treated for this infection and may want to get a repeat urine culture before doing the procedure. 2. Monitor blood culture until final at 72 hours.
[2018-09-25] MEDS: Insulin NovoLOG Aspart Correctional Sugar Inj SQ SCH ×5 (03:10→20:50)
[2018-09-25 04:37] LABS: Baso % (Auto) 0.3 % (0.0-2.0); Eos # (Auto) 0.2 th/mm3 (0.0-0.4); Eos % (Auto) 2.6 % (0.0-4.0); Hematocrit 29.5 % (39.0-51.0); Hemoglobin 9.5 gm/dL (13.0-17.0); Lymph # (Auto) 1.1 th/mm3 (1.0-4.8); Lymph % (Auto) 14.6 % (9.0-44.0); Mean Corpuscular HGB Conc 32.2 % (32.0-36.0); Mean Corpuscular Hemoglobin 24.8 pg (27.0-34.0); Mean Corpuscular Volume 77.1 fL (80.0-100.0); Mean Platelet Volume 7.9 fL (7.0-11.0); Mono % (Auto) 13.5 % (0.0-8.0); Neut # (Auto) 5.2 th/mm3 (1.8-7.7); Platelet Count 253 th/mm3 (150-450); Red Blood Count 3.82 mil/mm3 (4.50-5.90); Red Cell Distribution Width 15.9 % (11.6-17.2); White Blood Count 7.5 th/mm3 (4.0-11.0)
[2018-09-25 04:38] LABS: Chloride 95 meq/L (98-107); Potassium 3.3 meq/L (3.5-5.1); Sodium 132 meq/L (136-145)
[2018-09-25] MEDS: Chlorhexidine Gluconate 2% 1 Pack (2 Cloths) TOPICAL SCH (04:41)
[2018-09-25 04:42] LABS: Calcium 8.3 mg/dL (8.5-10.1)
[2018-09-25 04:43] LABS: Anion Gap 8 meq/L (5-15); Blood Urea Nitrogen 13 mg/dL (7-18); Carbon Dioxide 28.9 meq/L (21.0-32.0); Glucose,Random 176 mg/dL (74-106)
[2018-09-25 04:46] LABS: Alanine Aminotransferase 17 U/L (12-78); Aspartate Aminotransferase 27 U/L (15-37); Glomerular Filtration Rate Greater Than 89 mL/min (>89)
[2018-09-25 04:49] LABS: Alkaline Phosphatase 159 U/L (45-117)
[2018-09-25 04:54] LABS: Platelet Estimate Normal (Normal); Platelet Morphology Normal (Normal)
[2018-09-25] MEDS: Pantoprazole Sodium 20 MG DR Tablet PO SCH (08:44)
[2018-09-25] MEDS: Lisinopril 5 MG Tablet PO SCH (08:44)
[2018-09-25] MEDS: Carvedilol 12.5 MG Tablet PO SCH ×2 (08:44→20:46)
[2018-09-25] MEDS: Venlafaxine XR 75 MG Capsule PO SCH (08:44)
--- NOTE | 2018-09-25 13:00 | P.PNIM ---
Subjective Interval history: Follow-up gram-negative sepsis/UTI September 25, 2018patient seen and examined, increased appetite. Sort of oxygen desaturation at night. Afebrile. by the bedside. Currently on Rocephin. Repeat culture remain negative Physical Exam Vital signs: Vital Signs 09/24/18 13:00 09/24/18 14:00 09/24/18 15:18 Temperature Pulse Rate 76 74 78 Respiratory Rate 21 22 22 Blood Pressure 114/54 L 112/55 L 104/53 L Pulse Oximetry 97 97 09/24/18 16:00 09/24/18 18:00 09/24/18 19:00 Temperature Pulse Rate 82 88 74 Respiratory Rate 22 19 Blood Pressure 123/53 L 122/56 L Pulse Oximetry 93 L 93 L 09/24/18 20:00 09/24/18 20:48 09/24/18 21:00 Temperature 98 F Pulse Rate 74 76 Respiratory Rate 22 21 Blood Pressure 123/53 L 121/52 L Pulse Oximetry 93 L 94 L 94 L 09/24/18 22:07 09/24/18 23:00 09/25/18 00:00 Temperature 98 F Pulse Rate 80 72 72 Respiratory Rate 22 22 17 Blood Pressure 137/57 L 126/58 L 134/62 Pulse Oximetry 94 L 93 L 95 09/25/18 01:00 09/25/18 02:00 09/25/18 02:02 Temperature Pulse Rate 68 72 70 Respiratory Rate 22 19 26 H Blood Pressure 120/51 L 123/59 L Pulse Oximetry 94 L 95 92 L 09/25/18 03:00 09/25/18 04:00 09/25/18 06:00 Temperature 98 F Pulse Rate 74 62 66 Respiratory Rate 20 17 Blood Pressure 128/63 97/43 L Pulse Oximetry 94 L 93 L 09/25/18 08:00 09/25/18 12:00 Temperature 97.9 F 97.5 F L Pulse Rate 74 77 Respiratory Rate 14 19 Blood Pressure 131/30 L 137/60 Pulse Oximetry 76 L 95 Intake & Output 09/24/18 09/25/18 09/25/18 18:59 06:59 18:59 Intake Total 1060 / 1060 520 / 520 100 / 100 Output Total 475 / 475 1900 / 1900 Balance 585 / 585 -1380 / -1380 100 / 100 Weight 82.9 kg Intake: IV 100 / 100 100 / 100 100 / 100 Maxipime Inj 2,000 MG In NS Inj 100 / 100 100 / 100 100 ML @ 200 mls/hr IV.SIG Q12H [facility] Rx#:[id number] Rocephin Inj 2,000 MG In NS Inj 100 / 100 100 ML @ 200 mls/hr IV.SIG Q24H [facility] Rx#:[id number] Oral 960 / 960 420 / 420 Output: Urine 475 / 475 Urine Amount (Catheter) 1899 Indwelling Urethral Catheter 1899 Other: Date of Last Bowel Movement 09/23/18 09/23/18 09/23/18 Narrative: GENERAL: NAD SKIN: Warm and dry. HEAD: Atraumatic. Normocephalic. EYES: Pupils equal and round. No scleral icterus. No injection or drainage. ENT: No nasal bleeding or discharge. Mucous membranes pink and moist. NECK: Trachea midline. No JVD. CARDIOVASCULAR: Regular rate and rhythm. RESPIRATORY: No accessory muscle use. Clear to auscultation. Breath sounds equal bilaterally. GASTROINTESTINAL: Abdomen soft, non-tender, nondistended. Hepatic and splenic margins not palpable. MUSCULOSKELETAL: Extremities without clubbing, cyanosis, or edema. No obvious deformities. NEUROLOGICAL: Awake and alert. No obvious cranial nerve deficits. Motor grossly within normal limits. Five out of 5 muscle strength in the arms and legs. Normal speech. PSYCHIATRIC: Appropriate mood and affect; insight and judgment normal. Urinary Catheter Management Indwelling Urethral Catheter: Cath placed during this visit: yes Reason for continuing: Hourly intake/output Insertion date: 09/21/18 Results Labs CBC & Chem 7: 09/25/18 04:07 09/25/18 04:07 Labs: Microbiology 09/22/18 12:49 Blood - Peripheral Aerobic Blood Culture - Preliminary No growth in 3 days 09/22/18 12:49 Blood - Peripheral Anaerobic Blood Culture - Preliminary No growth in 3 days 09/22/18 12:43 Blood - Peripheral Aerobic Blood Culture - Preliminary No growth in 3 days 09/22/18 12:43 Blood - Peripheral Anaerobic Blood Culture - Preliminary No growth in 3 days Assessment and Plan Plan 72-year-old man with Gram-negative bacteremia Blood culture positive gram-negative rods Repeat blood culture times 3 days Currently on IV Rocephin IV as of today September 25, 2018 until October 05 per ID Appreciate input from ID Altered mental status change-improved Differential diagnosis includes pneumonia as patient with finding of 8 mm nodular infiltrate in the right lung He also be due to abnormal UA i.e. UTI Head CT noted and reviewed by me unremarkable Pneumonia? Chest x-ray with finding of 8 mm nodular infiltrate in the right lung However no clinical evidence suggesting pneumonia Klebsiella UTI Urine culture positive for Klebsiella aerogenes Now on Rocephin IV as of today September 25, 2018 until October 05, 2018 per ID Diabetes type 2 Continue insulin sliding scale with fingerstick blood glucose monitoring Hold oral antihyperglycemic agent Parkinson's disease Continue outpatient medications Other chronic medical conditions Continue outpatient medications Benign prostatic hypertrophy Patient to follow outpatient with urology for planned cystoscopy October 04, 2018 May need repeat urine culture prior to procedure Keep Bennett in place Obstructive sleep apnea? Outpatient sleep study recommended PT to treat and eval Progress Note: Quality VTE Deep Vein Thrombosis/Pulmonary Embolism Present on Admission: No
[2018-09-25] MEDS ORDERED: Potassium Chloride 10 MEQ ER Capsule PO ONE (13:03)
--- NOTE | 2018-09-25 16:13 | P.PNID ---
Subjective Remarks: Patient is patient is seen sitting in a chair. Awake and alert. Reports that he feels okay. Has much less sweating episodes. He denies chills. No nausea or vomiting. reports that he started eating well. Ambulated with physical therapy assistance. Afebrile. WBC is normal. Repeat blood culture is negative. 72-year-old white male who was brought to the emergency department with altered mental status on 09/20/2018. The patient has multiple medical problems. Past Medical History: PAST MEDICAL HISTORY: Diabetes mellitus, hypercholesteremia, Tellez's esophagus, esophageal cancer, pacemaker implantation 3 years ago, Parkinson disease, history of coronary artery bypass graft. PAST SURGICAL HISTORY: Lung lobectomy in 07/2018. Allergies/Adverse Reactions: Allergies No Known Allergies Allergy (Verified 09/20/18 20:05) Objective Vital Signs 09/24/18 18:00 09/24/18 19:00 09/24/18 20:00 Temperature 98 F Pulse Rate 88 74 74 Respiratory Rate 19 22 Blood Pressure 122/56 L 123/53 L Pulse Oximetry 93 L 93 L 09/24/18 20:48 09/24/18 21:00 09/24/18 22:07 Temperature Pulse Rate 76 80 Respiratory Rate 21 22 Blood Pressure 121/52 L 137/57 L Pulse Oximetry 94 L 94 L 94 L 09/24/18 23:00 09/25/18 00:00 09/25/18 01:00 Temperature 98 F Pulse Rate 72 72 68 Respiratory Rate 22 17 22 Blood Pressure 126/58 L 134/62 120/51 L Pulse Oximetry 93 L 95 94 L 09/25/18 02:00 09/25/18 02:02 09/25/18 03:00 Temperature Pulse Rate 72 70 74 Respiratory Rate 19 26 H 20 Blood Pressure 123/59 L 128/63 Pulse Oximetry 95 92 L 94 L 09/25/18 04:00 09/25/18 06:00 09/25/18 08:00 Temperature 98 F 97.9 F Pulse Rate 62 66 74 Respiratory Rate 17 14 Blood Pressure 97/43 L 131/30 L Pulse Oximetry 93 L 76 L 09/25/18 10:00 09/25/18 12:00 Temperature 97.5 F L Pulse Rate 74 76 Respiratory Rate 19 Blood Pressure 137/60 Pulse Oximetry 95 Intake & Output 02/09/25/18 09/25/18 18:59 06:59 18:59 Intake Total 1060 / 1060 520 / 520 100 / 100 Output Total 475 / 475 1900 / 1900 Balance 585 / 585 -1380 / -1380 100 / 100 Weight 82.9 kg Intake: IV 100 / 100 100 / 100 100 / 100 Maxipime Inj 2,000 MG In NS Inj 100 / 100 100 / 100 100 ML @ 200 mls/hr IV.SIG Q12H [facility] Rx#:[id number] Rocephin Inj 2,000 MG In NS Inj 100 / 100 100 ML @ 200 mls/hr IV.SIG Q24H [facility] Rx#:[id number] Oral 960 / 960 420 / 420 Output: Urine 475 / 475 Urine Amount (Catheter) 1899 / 1900 Indwelling Urethral Catheter 1899 Other: Date of Last Bowel Movement 09/23/18 09/23/18 09/23/18 09/22/18 12:49 Blood - Peripheral Aerobic Blood Culture - Preliminary No growth in 3 days 09/22/18 12:49 Blood - Peripheral Anaerobic Blood Culture - Preliminary No growth in 3 days 09/22/18 12:43 Blood - Peripheral Aerobic Blood Culture - Preliminary No growth in 3 days 09/22/18 12:43 Blood - Peripheral Anaerobic Blood Culture - Preliminary No growth in 3 days Lab - Hematology Results 09/25/18 04:07 CBC w Diff Slide review pending WBC 7.5 RBC 3.82 L Hgb 9.5 L Hct 29.5 L MCV 77.1 L MCH 24.8 L MCHC 32.2 RDW 15.9 Plt Count 253 MPV 7.9 Neut % (Auto) 69.0 Lymph % (Auto) 14.6 [place] % (Auto) 13.5 H Eos % (Auto) 2.6 Baso % (Auto) 0.3 Neut # (Auto) 5.2 Lymph # (Auto) 1.1 [place] # (Auto) 1.0 H Eos # (Auto) 0.2 Baso # (Auto) 0.0 WBC Differential . Diff Scan Auto diff confirmed Differential Comment . Platelet Estimate Normal Platelet Morphology Normal Lab - Chemistry Results 09/23/18 09/23/18 09/24/18 16:45 22:01 02:54 Sodium Potassium Chloride Carbon Dioxide Anion Gap BUN Creatinine Estimated GFR POC Glucose 227 203 161 Random Glucose Calcium Total Bilirubin AST ALT Alkaline Phosphatase Total Protein Albumin 09/24/18 09/24/18 09/24/18 07:55 11:34 17:17 Sodium Potassium Chloride Carbon Dioxide Anion Gap BUN Creatinine Estimated GFR POC Glucose 151 237 305 Random Glucose Calcium Total Bilirubin AST ALT Alkaline Phosphatase Total Protein Albumin 09/24/18 09/25/18 09/25/18 21:40 03:05 04:07 Sodium 132 L Potassium 3.3 L Chloride 95 L Carbon Dioxide 28.9 Anion Gap 8 BUN 13 Creatinine 0.59 L Estimated GFR Greater than 89 POC Glucose 279 194 Random Glucose 176 H Calcium 8.3 L Total Bilirubin 0.7 AST 27 ALT 17 Alkaline Phosphatase 159 H Total Protein 7.0 Albumin 2.0 L 09/25/18 09/25/18 08:47 11:48 Sodium Potassium Chloride Carbon Dioxide Anion Gap BUN Creatinine Estimated GFR POC Glucose 159 309 Random Glucose Calcium Total Bilirubin AST ALT Alkaline Phosphatase Total Protein Albumin Physical Exam: PHYSICAL EXAMINATION: GENERAL: No acute distress. Patient is awake and alert. HEENT: Head atraumatic. Extraocular movements are grossly intact. Pupils reactive to light. No icterus. Oropharynx: Mucosa moist. No visible lesions. NECK: Supple without adenopathy or swelling. LUNGS: Slight basilar rhonchi. HEART: Regular S1 and S2, without murmurs, rubs or gallops. ABDOMEN: Bowel sounds present. Soft, no tenderness appreciated. No palpable mass. EXTREMITIES: No clubbing, cyanosis or edema. SKIN: No rash. NEUROLOGIC: No gross focal findings. The patient has mild weakness in the upper extremities. No visible tremor. PSYCHIATRIC: Calm and cooperative. Assessment and Plan - Plan IMPRESSION: 1. Gram-negative sepsis from urinary tract infection source. Klebsiella aerogenes. 2. Urinary tract infection due to Klebsiella aerogenes (entero). 3. Benign prostatic hypertrophy. 4. Airspace disease along with volume loss noted in the left lower lung. The patient, however, is without clinical evidence suggesting pneumonia. He did have cough with yellow-tinged sputum, but that was not really significant and had improved before coming to the hospital. 5. Profuse sweats. Questionable etiology. RECOMMENDATIONS: Continue Ceftriaxone. Plan on giving ceftriaxone until October 05, 2018. He is due to have cystoscopy and possibly a procedure on the prostate gland When he sees the urologist. The urologist should be notified that he is treated for this infection and may want to get a repeat urine culture before doing the procedure.
[2018-09-26] MEDS: Insulin NovoLOG Aspart Correctional Sugar Inj SQ SCH ×5 (04:16→21:02)
[2018-09-26] MEDS: Venlafaxine XR 75 MG Capsule PO SCH (08:35)
[2018-09-26] MEDS: Pantoprazole Sodium 20 MG DR Tablet PO SCH (08:36)
[2018-09-26] MEDS: Carvedilol 12.5 MG Tablet PO SCH ×2 (08:36→21:02)
[2018-09-26] MEDS: Lisinopril 5 MG Tablet PO SCH (08:36)
[2018-09-26] MEDS: Chlorhexidine Gluconate 2% 1 Pack (2 Cloths) TOPICAL SCH (08:37)
[2018-09-26 11:51] LABS: Bilirubin,Urine Negative (Negative); Clarity,Urine Clear (Clear); Color,Urine Yellow (Yellw/Straw); Glucose,Urine (UA) 100 mg/dL (Negative); Leukocyte Esterase,Urine Negative (Negative); Nitrite,Urine Negative (Negative); PH,Urine 7.5 (5.0-8.5); Specific Gravity,Urine 1.015 (1.002-1.035)
[2018-09-26 12:00] LABS: RBC,Urine 0-3 /hpf (0-3); WBC,Urine 0-5 /hpf (0-5)
--- NOTE | 2018-09-26 18:37 | P.PNIM ---
Subjective Interval history: 72-year-old male who is seen examined today for follow-up on sepsis with bacteremia. Patient is doing much better this time. Patient remains afebrile. Denies any new complaints. is concerned because the patient does have Parkinson's and does have recurrent falls at home. She indicates that he did the best with physical therapy that he has done in 2 years. However she is not confident that he can come home in the state that he is in because of recurrent falls and injuries to his self. Vital signs are stable. Patient remains afebrile. Physical Exam Vital signs: Vital Signs 09/25/18 19:00 09/25/18 20:00 09/25/18 20:08 Temperature Pulse Rate 86 78 74 Respiratory Rate 19 18 20 Blood Pressure 137/61 Pulse Oximetry 94 L 96 96 09/25/18 20:14 09/25/18 21:00 09/25/18 22:00 Temperature 98.8 F Pulse Rate 75 86 86 Respiratory Rate 26 H 22 22 Blood Pressure 137/61 Pulse Oximetry 95 96 09/25/18 23:00 09/25/18 23:52 09/26/18 00:00 Temperature Pulse Rate 76 76 75 Respiratory Rate 18 21 21 Blood Pressure 146/69 H 149/70 H Pulse Oximetry 95 09/26/18 00:08 09/26/18 01:00 09/26/18 02:00 Temperature 98.3 F Pulse Rate 72 74 Respiratory Rate 21 16 Blood Pressure Pulse Oximetry 09/26/18 03:00 09/26/18 03:58 09/26/18 04:00 Temperature Pulse Rate 72 70 75 Respiratory Rate 20 20 Blood Pressure 156/64 H Pulse Oximetry 09/26/18 04:34 09/26/18 08:00 09/26/18 09:00 Temperature 97.5 F L 97.9 F Pulse Rate 75 78 80 Respiratory Rate 22 18 20 Blood Pressure 156/64 H 139/78 Pulse Oximetry 99 09/26/18 10:35 09/26/18 11:00 09/26/18 12:00 Temperature 98.2 F 98.5 F Pulse Rate 88 82 80 Respiratory Rate 18 23 19 Blood Pressure 142/82 H Pulse Oximetry 09/26/18 16:00 Temperature 95.8 F L Pulse Rate 78 Respiratory Rate 20 Blood Pressure 152/76 H Pulse Oximetry 96 Intake & Output 09/25/18 09/26/18 09/26/18 18:59 06:59 18:59 Intake Total 820 / 820 100 / 100 Output Total 1100 / 1100 1000 / 1000 Balance -280 / -280 -1000 / -1000 100 / 100 Weight 83 kg Intake: IV 100 / 100 100 / 100 Rocephin Inj 2,000 MG In NS Inj 100 / 100 100 / 100 100 ML @ 200 mls/hr IV.SIG Q24H [facility] Rx#:[id number] Oral 720 / 720 Output: Urine 1100 / 1100 Urine Amount (Catheter) 1000 / 1000 Indwelling Urethral Catheter 1000 / 1000 Other: Date of Last Bowel Movement 09/25/18 09/25/18 09/25/18 # Bowel Movements 1 Narrative: GENERAL: Well-developed, well-nourished, in no acute distress. alert and orientated HEENT: Head is normocephalic without any lesions or masses noted. Facial features are symmetric. Eyes: Extraocular muscles are intact. Conjunctivae were clear. NECK: Supple without any masses. Trachea midline no deviation. No JVD, CARDIAC: Regular rhythm, regular rate. S1/S2 are heard. No murmurs gallops or rubs. LUNGS: Clear to auscultation bilaterally. No wheeze, rhonchi or rales. No use of accessory muscles on inspiration or expiration. ABDOMEN: Soft, nontender. Nondistended. Bowel sounds heard in all 4 quadrants. No organomegaly or masses. Negative rebound, negative guarding EXTREMITIES: No edema, pulses are equal bilaterally. No cyanosis or clubbing NEUROLOGY: Mood and affect appear appropriate. Cranial nerves II through XII grossly intact. Moving all extremities, speech is clear Urinary Catheter Management Indwelling Urethral Catheter: Cath placed during this visit: yes Reason for continuing: Hourly intake/output Insertion date: 09/21/18 Results Labs CBC & Chem 7: 09/27/18 05:17 09/27/18 05:17 Labs: Microbiology 09/22/18 12:49 Blood - Peripheral Aerobic Blood Culture - Preliminary No growth in 4 days 09/22/18 12:49 Blood - Peripheral Anaerobic Blood Culture - Preliminary No growth in 4 days 09/22/18 12:43 Blood - Peripheral Aerobic Blood Culture - Preliminary No growth in 4 days 09/22/18 12:43 Blood - Peripheral Anaerobic Blood Culture - Preliminary No growth in 4 days Assessment and Plan Plan Klebsiella aerogenes bacteremia Infection has been identified as urinary source Patient is on Rocephin IV Infectious disease following the patient and recommended IV antibiotics until October 05 We will need to consult for vascular access for outpatient IV antibiotics Follow-up blood cultures are negative for 4 days Klebsiella aerogenes urinary tract infection Continued on Rocephin IV Culture sensitive to Rocephin Altered mental status change, likely toxic encephalopathy Could be secondary to urinary tract infection and sepsis CT of the head was performed which was unremarkable Workup did not indicate any metabolic encephalopathy Abnormal chest x-ray 8 mm nodule opacity in the right lower lungs may reflect nipple shadow. Requesting repeat imaging with nipple markers, airspace disease with associated volume loss in the left lower lung zone presumably atelectasis Incentive spirometry Repeat chest x-ray Diabetes Accu-Cheks with sliding scale insulin Parkinson's Home medications were continued Benign prostatic hypertrophy Continue home medications Patient does have follow-up appointment with urology for cystoscopy on September Discussed with who she does not think that she is going to have the procedure done We will maintain Bennett until outpatient follow-up with urologist Physical deconditioning Possibly secondary to infection versus Parkinson Physical therapy has been following the patient and patient actually walked over 200 feet today. However family indicates that he has not done that in over 2 years. says that she cannot even help him get up out of the bed or out of the chair on her own. Occupational therapy indicating occupational therapy at rehab [facility] consulted for discharge planning DVT prevention Sequential compression devices Discussed Condition With: Discussed with patient, , nursing staff. Discharge Planning: Discharge planning: Case management was consulted. Still need to arrange PICC line, outpatient IV antibiotics, possible rehab versus home with home health care Progress Note: Quality VTE Deep Vein Thrombosis/Pulmonary Embolism Present on Admission: No
[2018-09-27] MEDS: Insulin NovoLOG Aspart Correctional Sugar Inj SQ SCH ×3 (03:36→12:02)
[2018-09-27 06:51] LABS: Baso % (Auto) 0.3 % (0.0-2.0); Eos # (Auto) 0.3 th/mm3 (0.0-0.4); Eos % (Auto) 3.1 % (0.0-4.0); Hematocrit 32.6 % (39.0-51.0); Hemoglobin 10.7 gm/dL (13.0-17.0); Lymph # (Auto) 1.5 th/mm3 (1.0-4.8); Lymph % (Auto) 16.8 % (9.0-44.0); Mean Corpuscular HGB Conc 32.7 % (32.0-36.0); Mean Corpuscular Hemoglobin 25.8 pg (27.0-34.0); Mean Corpuscular Volume 78.8 fL (80.0-100.0); Mean Platelet Volume 8.2 fL (7.0-11.0); Mono # (Auto) 0.7 th/mm3 (0.0-0.9); Mono % (Auto) 8.2 % (0.0-8.0); Neut # (Auto) 6.6 th/mm3 (1.8-7.7); Neut % (Auto) 71.6 % (16.0-70.0); Platelet Count 304 th/mm3 (150-450); Red Blood Count 4.15 mil/mm3 (4.50-5.90); Red Cell Distribution Width 15.8 % (11.6-17.2); White Blood Count 9.1 th/mm3 (4.0-11.0)
[2018-09-27 07:15] LABS: Chloride 98 meq/L (98-107); Potassium 3.8 meq/L (3.5-5.1); Sodium 135 meq/L (136-145)
[2018-09-27 07:18] LABS: Calcium 8.7 mg/dL (8.5-10.1)
[2018-09-27 07:19] LABS: Anion Gap 5 meq/L (5-15); Blood Urea Nitrogen 10 mg/dL (7-18); Carbon Dioxide 31.9 meq/L (21.0-32.0); Glucose,Random 211 mg/dL (74-106)
[2018-09-27 07:22] LABS: Glomerular Filtration Rate Greater Than 89 mL/min (>89)
[2018-09-27] MEDS: Pantoprazole Sodium 20 MG DR Tablet PO SCH (08:41)
[2018-09-27] MEDS: Venlafaxine XR 75 MG Capsule PO SCH (08:41)
[2018-09-27] MEDS: Lisinopril 5 MG Tablet PO SCH (08:41)
[2018-09-27] MEDS: Carvedilol 12.5 MG Tablet PO SCH (08:42)
--- NOTE | 2018-09-27 08:42 | P.DCO ---
Post Hospital Infusion Therapy Location of Infusion Therapy: 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 [] May leave port accessed during therapy. [] May leave peripheral site accessed for duration of therapy. [x] If patient has SOB or respiratory distress, check oxygen saturation. If less than 90% or clinical signs of respiratory distress, administer oxygen at 2 L/min. via nasal cannula and notify physician. [x] Anaphylaxis/Reaction orders: * Stop infusion. * Keep IV line open with saline flush. * Notify physician. * Monitor vital signs every 15 minutes until symptoms resolve. * Check Oxygen saturation; Oxygen at 2 L/min. via nasal cannula if less than 90% or clinical signs of respiratory distress. * Administer diphenhydramine (Benadryl) 25 mg IV STAT, (unless patient has received as pre-med). May repeat once, if necessary. * Solu-Cortef 250 mg IVP over 30-60 seconds, use 100 mg vials for each dissolution. * Epinephrine (1mg/1 ml) 0.3 mg subcutaneously or IVP now with any signs of respiratory distress. * Check with physician for new additional pre-med orders if patient is re- challenged or re-treated. [x] May remove PICC line when treatment complete, after confirming with Physician. [x] If the patient is admitted to the hospital, the ED, or transferred via [facility] , complete transfer form including medication reconciliation order sheet. Weekly Labs: BMP and CBC w/diff Case Management Consult Case Management Consult-IVF: Yes
[2018-09-27 09:32] VITALS: BP 165/67; PULSE 98; RESP 20; TEMP 98; O2SAT 90
--- NOTE | 2018-09-27 10:20 | P.DS ---
DS: Providers Date of admission: 09/22/18 07:53 Primary care physician: [facility] Consults: 09/22/18 12:17 Consult to Infectious Diseases Routine Consulting Provider: Camilo Costello Reason for Consultation: 72-year-old male admitted secondary to metabolic encephalopathy, treated for UTI and pneumonia and now with bacteremia, please evaluate and advise for therapy Notified:: Service Spoke with:: Eva Date Notified:: 09/22/18 Time Notified:: 12:23 Ordering Provider: RENEA 09/26/18 15:36 HUB Only Consult Order Routine Consulting Provider: Mamta Xie Reason for Consultation: rehab Notified:: Service Spoke with:: Brook Date Notified:: 09/26/18 Time:: 15:36 Anticipated date of discharge: 09/27/18 Brief History from admission: 72-year-old man with multiple comorbidities and extensive past medical history including congestive heart failure, diabetes type 2, hypertension, previous history of squamous cell carcinoma, prostate cancer, CAD status post CABG was brought to the ED for evaluation of altered mental status change and a fall from the side of the bed. Patient had unremarkable head CTA and head CT in the ED however he had 8 mm nodular opacity finding in the right lower lung DS: Diagnosis Discharge Diagnosis (1) Bacteremia: Status: Acute (2) Urinary tract infection: Status: Acute (3) Sepsis: Status: Acute (4) Altered mental status: Status: Acute (5) Physical deconditioning: Status: Acute DS: Summary Klebsiella aerogenes bacteremia Infection has been identified as urinary source Patient is on Rocephin IV Infectious disease following the patient and recommended IV antibiotics until October 05 We will need to consult for vascular access for outpatient IV antibiotics Follow-up blood cultures are negative for 4 days Klebsiella aerogenes urinary tract infection Continued on Rocephin IV Culture sensitive to Rocephin Altered mental status change, likely toxic encephalopathy Could be secondary to urinary tract infection and sepsis CT of the head was performed which was unremarkable Workup did not indicate any metabolic encephalopathy Abnormal chest x-ray 8 mm nodule opacity in the right lower lungs may reflect nipple shadow. Requesting repeat imaging with nipple markers, airspace disease with associated volume loss in the left lower lung zone presumably atelectasis Incentive spirometry Repeat chest x-ray Diabetes Accu-Cheks with sliding scale insulin Parkinson's Home medications were continued Benign prostatic hypertrophy Continue home medications Patient does have follow-up appointment with urology for cystoscopy on September Discussed with who she does not think that she is going to have the procedure done We will maintain Bennett until outpatient follow-up with urologist Physical deconditioning Possibly secondary to infection versus Parkinson Physical therapy has been following the patient and patient actually walked over 200 feet today. However family indicates that he has not done that in over 2 years. says that she cannot even help him get up out of the bed or out of the chair on her own. Occupational therapy indicating occupational therapy at rehab [facility] consulted for discharge planning Time Spent with Patient Total time spent providing and/or coordinating discharge services: Greater than 30 minutes Quality: VTE Deep Vein Thrombosis/Pulmonary Embolism Present on Admission: No Exam Narrative Exam Narrative: GENERAL: Well-developed, well-nourished, in no acute distress. alert and orientated HEENT: Head is normocephalic without any lesions or masses noted. Facial features are symmetric. Eyes: Extraocular muscles are intact. Conjunctivae were clear. NECK: Supple without any masses. Trachea midline no deviation. No JVD, CARDIAC: Regular rhythm, regular rate. S1/S2 are heard. No murmurs gallops or rubs. LUNGS: Clear to auscultation bilaterally. No wheeze, rhonchi or rales. No use of accessory muscles on inspiration or expiration. ABDOMEN: Soft, nontender. Nondistended. Bowel sounds heard in all 4 quadrants. No organomegaly or masses. Negative rebound, negative guarding EXTREMITIES: No edema, pulses are equal bilaterally. No cyanosis or clubbing NEUROLOGY: Mood and affect appear appropriate. Cranial nerves II through XII grossly intact. Moving all extremities, speech is clear Results Labs on day of discharge: Labs from last 24 hours 09/27/18 09/27/18 09/27/18 07:17 05:17 05:17 CBC w Diff Auto diff final WBC 9.1 RBC 4.15 L Hgb 10.7 L Hct 32.6 L MCV 78.8 L MCH 25.8 L MCHC 32.7 RDW 15.8 Plt Count 304 MPV 8.2 Neut % (Auto) 71.6 H Lymph % (Auto) 16.8 [place] % (Auto) 8.2 H Eos % (Auto) 3.1 Baso % (Auto) 0.3 Neut # (Auto) 6.6 Lymph # (Auto) 1.5 [place] # (Auto) 0.7 Eos # (Auto) 0.3 Baso # (Auto) 0.0 WBC Differential . Differential Comment . Sodium 135 L Potassium 3.8 Chloride 98 Carbon Dioxide 31.9 Anion Gap 5 BUN 10 Creatinine 0.59 L Estimated GFR Greater than 89 POC Glucose 199 Random Glucose 211 H Calcium 8.7 Urine Color Urine Clarity Urine pH Ur Specific [place] Urine Protein Urine Glucose (UA) Urine Ketones Urine Occult Blood Urine Nitrate Urine Bilirubin Urine Urobilinogen Ur Leukocyte Esterase Urine RBC Urine WBC Urine Yeast Micro UA Comment Ur Microscopic Review Urine Culture Comments 09/27/18 09/26/18 09/26/18 03:31 20:17 16:17 CBC w Diff WBC RBC Hgb Hct MCV MCH MCHC RDW Plt Count MPV Neut % (Auto) Lymph % (Auto) [place] % (Auto) Eos % (Auto) Baso % (Auto) Neut # (Auto) Lymph # (Auto) [place] # (Auto) Eos # (Auto) Baso # (Auto) WBC Differential Differential Comment Sodium Potassium Chloride Carbon Dioxide Anion Gap BUN Creatinine Estimated GFR POC Glucose 232 303 237 Random Glucose Calcium Urine Color Urine Clarity Urine pH Ur Specific [place] Urine Protein Urine Glucose (UA) Urine Ketones Urine Occult Blood Urine Nitrate Urine Bilirubin Urine Urobilinogen Ur Leukocyte Esterase Urine RBC Urine WBC Urine Yeast Micro UA Comment Ur Microscopic Review Urine Culture Comments 09/26/18 09/26/18 11:26 11:22 CBC w Diff WBC RBC Hgb Hct MCV MCH MCHC RDW Plt Count MPV Neut % (Auto) Lymph % (Auto) [place] % (Auto) Eos % (Auto) Baso % (Auto) Neut # (Auto) Lymph # (Auto) [place] # (Auto) Eos # (Auto) Baso # (Auto) WBC Differential Differential Comment Sodium Potassium Chloride Carbon Dioxide Anion Gap BUN Creatinine Estimated GFR POC Glucose 330 Random Glucose Calcium Urine Color Yellow Urine Clarity Clear Urine pH 7.5 Ur Specific [place] 1.015 Urine Protein Negative Urine Glucose (UA) 100 H Urine Ketones Negative Urine Occult Blood Trace Urine Nitrate Negative Urine Bilirubin Negative Urine Urobilinogen 2.0 H Ur Leukocyte Esterase Negative Urine RBC 0-3 Urine WBC 0-5 Urine Yeast Many H Micro UA Comment Culture not ind Ur Microscopic Review Microscopic reviewed Urine Culture Comments Culture not ind Preliminary micro results at discharge 09/22/18 12:49 Aerobic Blood Culture - Preliminary Blood - Peripheral No growth in 4 days Anaerobic Blood Culture - Preliminary No growth in 4 days 09/22/18 12:43 Aerobic Blood Culture - Preliminary Blood - Peripheral No growth in 4 days Anaerobic Blood Culture - Preliminary No growth in 4 days Discharge Plan Discharge Disposition Patient Disposition: 62 Rehab Inpatient Discharge Condition Condition: Stable Discharge Order Discharge Orders: Discharge Order (Routine); Ordered 09/27/18 Ordered By: Dhruv Gomes Discharge Details Anticipated Discharge Date: 09/27/18 Discharge Comment: Okay to discharge to rehab once arrangements made by case management Physicians Team Primary Care Provider: [facility] Attending Provider: Kristian Moraes Other Providers: Camilo Costello ; Elsi Kruger,Mamta Rxs /Orders / Referrals /Forms Prescriptions: New atorvastatin 40 mg Tablet 40 mg PO DAILY@1800 Qty: 30 RF: 0 carvedilol [Coreg] 12.5 mg Tablet 12.5 mg PO BID Qty: 30 RF: 0 tamsulosin 0.4 mg Capsule 0.4 mg PO DAILY Qty: 30 RF: 0 venlafaxine [Effexor XR] 75 mg Capsule,Extended Release 24hr 150 mg PO DAILY Qty: 30 RF: 0 aspirin 81 mg Tablet,Delayed Release (Dr/Ec) 81 mg PO DAILY Qty: 30 RF: 0 pantoprazole [Protonix] 20 mg Tablet,Delayed Release (Dr/Ec) 20 mg PO DAILY Qty: 30 RF: 0 insulin aspart U-100 [Novolog U-100 Insulin aspart] 100 unit/mL Solution subcut ACHS AND 3AM Qty: 1 RF: 0 carbidopa-levodopa 25-100 mg Tablet 0.5 tab PO BID Qty: 30 RF: 0 ceftriaxone 2 gram recon soln 2 g IV.SIG Q24H Qty: 8 RF: 0 lisinopril 10 mg tablet 10 mg PO DAILY Qty: 30 RF: 0 Continue atorvastatin 80 mg Tablet 0.5 tab PO QPM RF: 0 carvedilol 12.5 mg Tablet 12.5 mg PO BID RF: 0 polyvinyl alcohol 1.4 % Drops 1 drp EACH EYE DAILY PRN (Reason: DRY EYE) RF: 0 aspirin 81 mg Tablet,Delayed Release (Dr/Ec) 81 mg PO DAILY RF: 0 lisinopril 5 mg Tablet 5 mg PO DAILY RF: 0 insulin aspart U-100 [Novolog Flexpen U-100 Insulin] 100 unit/mL Insulin Pen 10 unit SUBCUT TID RF: 0 insulin glargine 100 unit/mL Solution 48 unit SUBCUT HS RF: 0 meloxicam 7.5 mg Tablet 7.5 mg PO DAILY RF: 0 metformin 500 mg Tablet 500 mg PO AC BREAKFAST RF: 0 venlafaxine 75 mg Tablet 150 mg PO DAILY RF: 0 tamsulosin [Flomax] 0.4 mg Capsule 0.4 mg PO DAILY RF: 0 omeprazole 20 mg Tablet,Delayed Release (Dr/Ec) 20 mg PO DAILY RF: 0 carbidopa-levodopa 25-100 mg Tablet 0.5 tab PO BID RF: 0 Referrals: [facility] [Primary Care Provider] - See Instructions ( REHAB INPAT, AT PATIENTS CONVENIENCE AFTER REHAB INSTRUCT PT TO CALL THEIR PCP FOR A F/U APT IF NEEDED) Status ED Status: Admitted Observation Patient
--- NOTE | 2018-09-27 10:44 | XR ---
EXAM DATE: 09/27/2018 10:29 AM EST AGE/SEX: 72 years / Male INDICATIONS: . Abnormal findings on prior chest x-ray. requested with nipple markers. CLINICAL DATA: This is the patient's subsequent encounter. Patient reports that signs and symptoms h ave been present for 1 week and indicates a pain score of 0/10. MEDICAL/SURGICAL HISTORY: Hypercholesterolemia. Parkinson's disease. Diabetes. Esophageal CA . Tellez's esophagus. CABG. Pacemaker. Lobectomy. COMPARISON: [facility], CHEST 1V SINGLE AP, 09/20/2018. . FINDINGS: There is persistent elevation of the left hemidiaphragm. Left perihilar infiltrate is noted. The righ t lung is clear. The heart is enlarged. Median sternotomy wires are noted status post cardiac surgery . Left subclavian dual lead pacemaker has its tips in right atrium and right ventricle. CONCLUSION: 1. Left perihilar infiltrate. 2. Persistent elevation of the left hemidiaphragm. 3. Cardiomegaly. Electronically signed by: Raul Stallworth MD Board Certified Radiologist 09/27/2018 10:43 AM EST
== END 2018-09-27 16:09 | DRG 871 ==
LOC: PHEDDLT 09-21 04:30 → PH3 09-21 04:30 → PHICU 09-21 20:02 → PH3 09-26 14:22
PROVIDERS: ADMIT Hospitalist; ATTEND Hospitalist
DX: Z95.1 Presence of aortocoronary bypass graft; Y92.003 Bedroom of unspecified non-institutional (private) residence as the place of occurrence of the external cause; I50.9 Heart failure, unspecified; K22.70 Barrett's esophagus without dysplasia; G92 Toxic encephalopathy; G20 Parkinson's disease; Z87.891 Personal history of nicotine dependence; I25.10 Atherosclerotic heart disease of native coronary artery without angina pectoris; A41.50 Gram-negative sepsis, unspecified; Y93.89 Activity, other specified; E11.9 Type 2 diabetes mellitus without complications; R29.6 Repeated falls; N39.0 Urinary tract infection, site not specified; Z85.01 Personal history of malignant neoplasm of esophagus; R39.11 Hesitancy of micturition; B96.1 Klebsiella pneumoniae [K. pneumoniae] as the cause of diseases classified elsewhere; E78.00 Pure hypercholesterolemia, unspecified; I11.0 Hypertensive heart disease with heart failure; Z95.0 Presence of cardiac pacemaker; J18.9 Pneumonia, unspecified organism; Z79.82 Long term (current) use of aspirin; R63.4 Abnormal weight loss; N40.1 Benign prostatic hyperplasia with lower urinary tract symptoms; Z79.4 Long term (current) use of insulin; K59.00 Constipation, unspecified; Z85.46 Personal history of malignant neoplasm of prostate; W06.XXXA Fall from bed, initial encounter
CPT/HCPCS: 36569; 51702; 70450; 70496; 70498; 71010; 71020; 71045; 71046; 76937; 80048; 80053; 81001; 82550; 82948; 82962; 83520; 83605; 83690; 83880; 84484; 85025; 85610; 85730; 87040; 87077; 87086; 87186; 87205; 87641; 90761; 90765; 93005; 96361; 96365; 96366; 97110; 97116; 97162; 97166; 97530; 99285; G0378; G8987; G8988; J0456; J0692; J0696; J1815; J2060; J2543; J7030; J7040; J7050; Q9967